=== PATIENT | male | born 1940 | race Caucasian/White ===

== ENCOUNTER → 2017-01-01 | Outpatient (CLI) | payer OTHER, MEDICARE ==
[2015-01-24 12:41] VITALS: BP 162/74
[2017-01-01 12:57] LABS: CREATININE 3.76 mg/dL (0.70-1.30)
--- NOTE | 2017-01-01 15:38 | CT ---
HISTORY: Abdominal pain Study: CT abdomen and pelvis without contrast Comparison: None Technique: Multiple axial images of the abdomen and pelvis were obtained from the lung bases to the pubic symph ysis without the administration of IV contrast. Sagittal and coronal reformations were provided. Findings: The visualized portions of the lung bases are unremarkable. The right kidney is extremely atrophic and barely visible it is so small. There is hypertrophy of the left kidney without hydronephrosis. T here is a 3.6 centimeter central cyst. The liver and spleen and pancreas and adrenal glands are unre markable.. The gallbladder is unremarkable in its CT appearance. No significant mesenteric lymphade nopathy or stranding can be observed. No free fluid or free air is seen within the abdomen. The ap pendix is normal. There is a ventral umbilical hernia of fat . The hernia sac measures 5.3 centimete rs diameter. There stranding of fat planes within the hernia. The distal right ureter is dilated to 1.3 centimeters and there is a 3 centimeter mass at the base of the bladder towards the right and a 7 millimeter calcific density posteriorly within this mass. The prostate gland is normal in size. No bowel wall thickening or bowel dilatation is present. The colon is unremarkable. Specifically, th ere is no diverticulosis noted within the sigmoid colon. The urinary bladder is grossly unremarkable . The bony structures are grossly intact. IMPRESSION: 1. Paraumbilical hernia containing fat with stranding of fat planes implying inflammation within th e hernia. 2. Tiny right kidney with dilatation of the distal right ureter apparently secondary to a nearly 3 c entimeter mass at the base of the right bladder with a dependent or dorsal 7 millimeter calcificatio n within this mass. This mass could represent a chronic ureterocele with increased attenuation from hemorrhage and a dependent calculus. If clinically indicated consider cystoscopy for further evaluat ion. Reported By:
== END ==
LOC: RAD 12:16
PROVIDERS: ATTEND Student in an Organized Health Care Education/Training Program
DX: K42.0 Umbilical hernia with obstruction, without gangrene (principal); R10.31 Right lower quadrant pain
CPT/HCPCS: 36415; 74176; 82565; 84520

== ENCOUNTER 2017-01-10 14:20 | Inpatient (IN) | payer OTHER, MEDICARE ==
--- NOTE | 2017-01-10 14:50 | DR.GENAD ---
HPI - PCP Primary Care Physician: KELBY VUONG - Complaint/Symptoms Chief Complaint Doctors Comments: Family member states at 3:30 am patient begin to shake and was shaking their aime size bed with patient initially complaining of nausea, diffuse abdominal pain and headache. Patient states he has a cyst on his bladder and the other day they put a light into his bladder. He has had a cough but not that bad as he describes it. He denies chest pain or SOB. Family states patient has been extremely weak today and has had problems getting up. States he had a headache at the onset of his problems but his head is not hurting now but he is having stomach pain. Chief Complaint:: PTS FAMILY STATES " AT 0300 PT BEGAN TO JERK , AND PT IS REALLY WEAK". . Self Treatment fo Chief Complaint: PT IS ALTERT AND ORIENTED TIMES FOUR,, - Nurses notes reviewed Nurses Notes Review: Yes - Source History Provided: Patient - Mode of Arrival Mode of Arrival: Wheelchair - Timing Onset of Chief Complaint: 01/10/17 Came on: Gradually - Duration Duration: Intermittent How lon Duration: Hours - Location Location: diffuse abdominal pain. headache - Severity Severity: Moderate - Modifying Factors Worsens:: nothing Improves:: nothing PMH - PMH Past Medical History: Yes Past Medical History: Depression, Gout, Hypertension, [place] Past Medical History Comment: ONE KIDNEY .. Past Surgical History: Yes Surgical History: Ortho Surgery - Family History History of Family Medical Conditions: No Family Medical History: Cancer, [place], Hypertension - Social History Does patient currently use any type of tobacco product: No Have you used tobacco products in the last 12 months: No Type of Tobacco Use: None Does any household member use tobacco: No Alcohol Use: None Do you use any recreational Drugs:: No Lives With: Family Lives Where: Home - infectious screening In the last 2 months have you had wt loss of >10#?: NO Have you had fever, night sweats or hemotysis?: No Have you traveled outside the country in the last 6 months?: No Isolation: Standard ROS - Review of Systems Constitutional: No Symptoms Reported, Fever, Weakness, Loss of Appetite Eyes: No Symptoms Reported. negative: See HPI, Eye Pain, Blurred Vision, Tearing, Discharge, Photophobia, Diplopia, Other ENTM: No Symptoms Reported. negative: See HPI, Ear Pain, Ear Discharge, Pulling on Ears, Hearing Loss, Nose Pain, Nose Discharge, Epistaxis, Nose Congestion, Mouth Pain, Mouth Swelling, Loose Teeth, Drooling, Throat Pain, Throat Swelling, Ear Foreign Body Respiratoy: No Symptoms Reported. negative: See HPI, Productive Cough, Non- Productive Cough, Moist Cough, Dry Cough, Hacking Cough, Barking Cough, Brassy Cough, Orthopnea, Short of Breath, Stridor, Wheezing, Hemoptysis, Other Cardiovascular: No Symptoms Reported. negative: See HPI, Chest Pain, Edema, Palpitations, Syncope, Cyanosis, Skin Mottling, Other Gastrointestinal/Abdominal: No Symptoms Reported, Abdominal Pain. negative: See HPI, Constipation, Diarrhea, Nausea, Vomiting, Food Intolerance, Other Genitourinary: No Symptoms Reported, Frequency. negative: See HPI, Discharge, Dysuria, Hematuria, Pain, Bleeding, Other Neurological: No Symptoms Reported, Headache, Weakness, Problems Walking Musculoskeletal: No Symptoms Reported Integumentary: No Symptoms Reported Hematologic/Lymphatic: No Symptoms Reported. negative: See HPI, Anemia, Blood Clots, Easy Bleeding, Easy Bruising, Swollen Glands, Lymphadenopathy, Other Endocrine: No Symptoms Reported. negative: See HPI, Excessive Sweating, Flushing, Intolerance to Cold, Intolerance to Heat, Increased Hunger, Increased Thirst, Increased Urine, Unexplained Weight Gain, Unexplained Weight Loss, Failure to Thrive, Decreased Appetite, Other Psychiatric: No Symptoms Reported. negative: See HPI, Anxiety, Depression, Hallucinations, Excessive crying, Suicidal, Other PE - Vital Signs Vitals: Temperature 101.0 F Pulse Rate 62 Respiratory Rate 20 Blood Pressure [Right Arm] 162/74 Blood Pressure 156/75 O2 Sat by Pulse Oximetry 97 - General Limitations: Altered Mental Status General Appearance: Alert, In No Apparent Distress, In Distress (moderate to severe) - Head Head Exam: Normal Inspection, Atraumatic, Normocephalic - Eyes Eye exam: Normal Appearance, PERRL, EOMI. negative: Scleral Icterus, Conjunctival Injection, Nystagmus, Miosis, Mydrasis, Periorbital Swelling, Periorbital Tenderness, Other - ENT ENT Exam: Normal Exam, Normal Oropharynx, Normal External Ear Exam, Mucous Membranes Moist, TM's Normal Bilaterally External Ear Exam: Normal External Inspection TM/Canal Exam: Bilateral Normal Nose Exam: Normal Nose Exam, Sinus Tenderness. negative: Nasal Deviation, Crepitus, Septal Hematoma, Laceration Mouth Exam: Normal Inspection. negative: Drooling, Trismus, Lip Swelling, Tongue Elevation, Tongue Swelling, Laceration, Other Throat Exam: Normal Inspection - Neck Neck Exam: Normal Inspection, Full ROM, Trachea Midline. negative: Tenderness, Meningismus, Lymphadenopathy, Thyromegaly, Other - Chest Chest Inspection: Normal Inspection, Symmetric Chest Wall Rise, Tenderness (RUQ tenderness) - Respiratory Respiratory Exam: Normal Lung Sounds Bilat, Chest Wall Tenderness (right anterior wall tenderness RUQ) Respiratory Exam: Bilateral Clear to Auscultation - Cardiovascular Cardiovascular Exam: Regular Rate, Normal Rhythm, Normal Heart Sounds - Abdominal Exam Abdominal Exam: Normal Inspection, Normal Bowel Sounds, Soft, Distention, Hernia (umbilical hernia; readucable 6 cm) Abdominal Tenderness: RUQ, Epigastrium, Moderate - Extremities Extremities Exam: Normal Inspection, Full ROM, Normal Capillary Refill. negative: Tenderness, Edema, Joint Swelling, Calf Tenderness, Other - Back Back Exam: Normal Inspection, Full ROM, (R) CVA Tenderness. negative: Tenderness, (L) CVA Tenderness, Muscle Spasm, Paraspinal Tenderness, Vertebral Tenderness, Rashes, (R) Sciatic Notch Tenderness, (L) Sciatic Notch Tendern, (R ) Straight Leg Raise, (L) Straight Leg Raise, Other - Neurologic Neurological Exam: Alert, Oriented X3, CN II-XII Intact, Normal Gait, Reflexes Normal - Psychiatric Psychiatric Exam: Normal Affect, Normal Mood - Skin Skin Exam: Warm, Dry, Intact, Normal Color Course - Reevaluation 1st: Improved - Consultation Called: 18:04 Call Returned: 18:22 (Dr. Xiong to admit) - Education/Counseling Education/Counseling: Patient, Family Educated On: Treatment, Diagnosis, Prognosis, Needs for Follow Up ROR - Labs Reviewed Laboratory Results Reviewed?: Yes (all labs and x-ray results reviewed and discussed with patient and famil.) Result Diagrams: 01/10/17 14:55 01/10/17 14:55 Laboratory: WBC 9.7 X10^3/uL (3.6-10.0) 01/10/17 14:55 RBC 3.31 X10^6/uL (4.7-6.0) L 01/10/17 14:55 Hgb 9.4 g/dL (13.5-18.0) L 01/10/17 14:55 Hct 29.1 % (42.0-54.0) L 01/10/17 14:55 MCV 87.8 fL (80.0-100.0) 01/10/17 14:55 MCH 28.4 pg (27.0-34.0) 01/10/17 14:55 MCHC 32.3 g/dL (33.0-35.0) L 01/10/17 14:55 RDW 14.1 % (11.6-16.5) 01/10/17 14:55 Plt Count 128.7 X10^3/uL (150.0-450.0) L 01/10/17 14:55 Plt Count Comment Decreased (ADEQUATE) 01/10/17 14:55 MPV 8.7 fL (7.4-11.0) 01/10/17 14:55 Neut % 91.1 % (42.0-75.0) H 01/10/17 14:55 Lymph % 2.6 % (21.0-51.0) L 01/10/17 14:55 Beaver % 4.9 % (0.0-13.0) 01/10/17 14:55 Eos % 0.4 % (0.9-2.9) L 01/10/17 14:55 Baso % 1.0 % (0.2-1.0) 01/10/17 14:55 Neut # 8.8 x10^3/uL (2.2-4.8) H 01/10/17 14:55 Lymph # 0.2 X10^3/uL (1.3-2.9) L 01/10/17 14:55 Beaver # 0.5 x10^3/uL (0.3-0.8) 01/10/17 14:55 Eos # 0.0 x10^3/uL (0.0-0.2) 01/10/17 14:55 Baso # 0.1 X10^3/uL (0.0-0.1) 01/10/17 14:55 Absolute Nucleated RBC 0.0 /100WBC 01/10/17 14:55 Total Counted 100 01/10/17 14:55 Neutrophils % (Manual) 91 % (39-76) H 01/10/17 14:55 Lymphocytes % (Manual) 4 % (13-43) L 01/10/17 14:55 Monocytes % (Manual) 4 % (4-9) 01/10/17 14:55 Eosinophils % (Manual) 1 % (0-6) 01/10/17 14:55 Plt Morphology Comment Normal (NORMAL) 01/10/17 14:55 RBC Morphology Normal (NORMAL) 01/10/17 14:55 Sodium 141 mmol/L (136-145) 01/10/17 14:55 Corrected Sodium TNP 01/10/17 14:55 Potassium 5.5 mmol/L (3.5-5.1) H 01/10/17 14:55 Chloride 110 mmol/L (98-107) H 01/10/17 14:55 Carbon Dioxide 18.3 mmol/L (21-32) L 01/10/17 14:55 BUN 56 mg/dL (7-18) H 01/10/17 14:55 Creatinine 4.58 mg/dL (0.70-1.30) H 01/10/17 14:55 Est GFR (MDRD) Af Amer 16 (>60) L 01/10/17 14:55 Est GFR (MDRD) Non-Af 13 (>60) L 01/10/17 14:55 Glucose 84 mg/dL (65-99) 01/10/17 14:55 Calcium 8.9 mg/dL (8.5-10.1) 01/10/17 14:55 Corrected Calcium TNP 01/10/17 14:55 Total Bilirubin 0.30 mg/dL (0.2-1.0) 01/10/17 14:55 AST 35 Units/L (15-37) 01/10/17 14:55 ALT 23 Units/L (12-78) 01/10/17 14:55 Alkaline Phosphatase 45 Units/L (46-116) L 01/10/17 14:55 Total Protein 7.4 g/dL (6.4-8.2) 01/10/17 14:55 Albumin 3.5 g/dL (3.4-5.0) 01/10/17 14:55 Globulin 3.9 g/dL (2.5-4.5) 01/10/17 14:55 Albumin/Globulin Ratio 0.9 Ratio (1.1-2.1) L 01/10/17 14:55 Amylase 56 Units/L (25-115) 01/10/17 14:55 Lipase 167 Units/L (73-393) 01/10/17 14:55 - XRAY XRAY Interpreted by: Radiologist (CT chest: Left basilar pneumonitis possible; Cardiomegaly; pulmonary hypertensin.), Both (CT head: No acut intracranial process. Left maxillary sinus cyst) XRAY Findings: CT abdomen: Adrenal myelolipomas; Bladder mass unchanged. - Diagnosis Discharge Problem: Left basilar pneumonitis, Normochromic anemia, Bladder mass, Hyperkalemia, Pulmonary hypertension Altered mental status Qualifiers: Altered mental status type: somnolence Qualified Code(s): R40.0 - Somnolence Sinusitis Qualifiers: Sinusitis location: maxillary Chronic kidney disease Qualifiers: Chronic kidney disease stage: stage 4 (severe) Qualified Code(s): N18.4 - Chronic kidney disease, stage 4 (severe) - Discharge Plan Disposition: ADMITTED INPATIENT Condition: Stable - Follow ups/Referrals Follow ups/Referrals: NFD,None [Primary Care Provider] - 3 days - Instructions
[2017-01-10] MEDS ORDERED: NS 1000 ML 1,000 ML ONE (14:57)
[2017-01-10] MEDS: NS 1000 ML 1,000 ML IV SCH (15:08)
[2017-01-10] MEDS ORDERED: LEVAQUIN PREMIX IV 750 MG 750 MG/150 ML BAG IV ONE (15:18)
--- NOTE | 2017-01-10 15:20 | CT ---
HISTORY: Lethargy, headache Study: CT brain without contrast Total Exam DLP: 1290 Comparison: Technique: Multiple axial images of the brain were obtained from the skull base to the vertex without administr ation of IV contrast. Dose reduction techniques were utilized including one or more of the following: Automatic Exposure C ontrol, Adjustment of MA and or KV according to patient size or use of iterative reconstruction tech niques. Findings: No acute intraparenchymal hemorrhage or mass can be identified. No extra-axial fluid collections ar e seen. No alteration in the attenuation of the brain parenchyma can be identified to suggest acute or subacute ischemic change. The ventricular system is symmetric and nondilated. Mild peripheral atrophy is noted. A retention cyst is noted the left maxillary sinus measuring 2 cm consistent chron ic sinusitis. Ocular globes appear intact. IMPRESSION: 1. No acute intracranial process can be identified.. Retention cyst left maxillary sinus. Reported By:
[2017-01-10 15:21] LABS: BASOPHILS # (AUTO) 0.1 X10^3/uL (0.0-0.1); EOSINOPHILS % (AUTO) 0.4 % (0.9-2.9); HEMATOCRIT 29.1 % (42.0-54.0); HEMOGLOBIN 9.4 g/dL (13.5-18.0); LYMPHOCYTES # (AUTO) 0.2 X10^3/uL (1.3-2.9); LYMPHOCYTES % (AUTO) 2.6 % (21.0-51.0); MEAN CORPUSCULAR HEMOGLOBIN 28.4 pg (27.0-34.0); MEAN CORPUSCULAR HGB CONC 32.3 g/dL (33.0-35.0); MEAN CORPUSCULAR VOLUME 87.8 fL (80.0-100.0); MEAN PLATELET VOLUME 8.7 fL (7.4-11.0); MONOCYTES # (AUTO) 0.5 x10^3/uL (0.3-0.8); MONOCYTES % (AUTO) 4.9 % (0.0-13.0); NEUTROPHILS # (AUTO) 8.8 x10^3/uL (2.2-4.8); NEUTROPHILS % (AUTO) 91.1 % (42.0-75.0); RED BLOOD COUNT 3.31 X10^6/uL (4.7-6.0); RED CELL DISTRIBUTION WIDTH 14.1 % (11.6-16.5); WHITE BLOOD COUNT 9.7 X10^3/uL (3.6-10.0)
[2017-01-10 15:24] LABS: PLATELET COUNT 128.7 X10^3/uL (150.0-450.0)
[2017-01-10 15:29] LABS: ALANINE AMINOTRANSFERASE 23 Units/L (12-78); ALBUMIN 3.5 g/dL (3.4-5.0); ALKALINE PHOSPHATASE 45 Units/L (46-116); AMYLASE 56 Units/L (25-115); BLOOD UREA NITROGEN 56 mg/dL (7-18); CALCIUM 8.9 mg/dL (8.5-10.1); CARBON DIOXIDE 18.3 mmol/L (21-32); CHLORIDE 110 mmol/L (98-107); CREATININE 4.58 mg/dL (0.70-1.30); GLUCOSE 84 mg/dL (65-99); LIPASE 167 Units/L (73-393); SODIUM 141 mmol/L (136-145); TOTAL PROTEIN 7.4 g/dL (6.4-8.2); eGFR BLACK RACES 16 (>60); eGFR NON BLACK RACES 13 (>60)
[2017-01-10 15:32] LABS: ASPARTATE AMINO TRANSFERASE 35 Units/L (15-37)
[2017-01-10 15:33] LABS: PLATELET MORPHOLOGY COMMENT NORMAL (NORMAL)
--- NOTE | 2017-01-10 15:33 | CT ---
HISTORY: Pneumonia. Chest pain. Study: CT chest without contrast Comparison: Chest radiograph dated 01/18/2015 Technique: Multiple axial images of the chest were obtained from the thoracic inlet to the upper abd omen without the administration of IV contrast. Automated exposure control (AEC) was utilized to ad just the MA and/or kV according to patient size. Findings: The central airways are patent. patchy ground-glass opacities noted within the left lower lobe whic h may be secondary to dependent atelectatic changes however mild left basilar pneumonitis is not ent irely excluded. No pleural effusion. No pneumothorax. There are no significantly enlarged axillary, mediastinal or hilar lymph nodes by CT size criteria. Multiple coronary stents present. There is mild multichamber cardiomegaly. No pericardial effusion . The aorta is of normal caliber without aneurysmal dilatation. The pulmonary trunk is dilated emmanuel suring 3.7 cm in diameter. Limited images of the upper abdomen so no gross acute abnormality. Examination of the osseous structures demonstrates no acute osseous abnormality.. There is a chronic healed left clavicular fracture deformity. IMPRESSION: 1. Scattered ground-glass opacities are noted within the left lung base which are nonspecific. Thes e may be secondary to dependent atelectatic changes are scarring however mild left basilar pneumonit is is not excluded. There are no focal airspace opacities noted. 2. Distended pulmonary trunk measuring 3.7 cm. This can be seen in the setting of pulmonary arterial hypertension. 3. Mild cardiomegaly 4. Other findings as above. Reported By:
[2017-01-10] MEDS: LEVAQUIN PREMIX IV 750 MG 750 MG/150 ML BAG IV SCH (15:39)
--- NOTE | 2017-01-10 16:00 | CT ---
HISTORY: Right upper quadrant abdominal pain and abdominal swelling Study: CT abdomen and pelvis without contrast Comparison: January 01, 2017 Technique: Multiple axial images of the abdomen and pelvis were obtained from the lung bases to the pubic symph ysis without the administration of IV contrast. Findings: The visualized portions of the lung bases are clear. Very mild subsegmental atelectasis is noted wit hin the left lung base. The liver, pancreas, and spleen are unremarkable in appearance. Within the left adrenal gland there is a 2.4 cm x 2.3 cm fatty lesion which is most consistent with an adrenal myelolipoma. A smaller ad renal myelolipoma measuring 1.5 cm x 1.4 cm is identified within the right adrenal gland. Within the mid pole of the left kidney there is a 3.5 cm x 3.4 cm renal cyst. The right kidney is severely atr ophic and barely visible. There is mild dilatation of the distal right ureter , which contains a non obstructing 4 mm curvilinear calcification. At the right base of bladder near the right ureterovesic al junction there is a stable 2.9 cm isodense structure which could represent a ureterocele , contai nelia a 7 mm calcification or stone. If not already performed , cystoscopy would be beneficial in fur ther evaluation . The gallbladder is unremarkable in its CT appearance. No significant mesenteric l ymphadenopathy or stranding can be observed. No free fluid or free air is seen within the abdomen. No bowel wall thickening or bowel dilatation is present. The colon is unremarkable. The appendix i s normal in size and without inflammatory change. However, there are at least 2 calcific structures within the appendix, possibly representing an appendicoliths versus retained contrast. Again identif ied is a periumbilical hernia which contains fat. There is stranding within the herniated fat, sugge sting inflammation or possible fatty infarct. The bony structures are grossly intact. Multilevel th oracolumbar spondylosis and facet hypertrophy are noted. There are postsurgical changes of the lower lumbar spine. IMPRESSION: 1. No acute intra-abdominal abnormality evident. 2. Unchanged bladder base mass. Please see above discussion. 3. Bilateral adrenal myelolipomas. 4. Fat containing periumbilical hernia, with stranding present within the herniated fat, suggesting inflammation or fatty infarct. Reported By:
[2017-01-10] MEDS ORDERED: TUSSIONEX PENNKINETIC SUSP PO PRN ×2 (18:30→19:13)
[2017-01-10 20:00] VITALS: BMI 29.3
[2017-01-10] MEDS ORDERED: SALINE 3% 15 ML NEB TX ONE (20:12)
[2017-01-10] MEDS ORDERED: DUONEB 0.5 MG/3 MG ONE (20:13)
[2017-01-10] MEDS: DUONEB 0.5 MG/3 MG NEB SCH (20:22)
[2017-01-10] MEDS ORDERED: TYLENOL 325 MG TAB PO PRN (20:51)
[2017-01-10] MEDS ORDERED: ROBITUSSIN DM PO SCH (21:00)
[2017-01-10] MEDS ORDERED: DUONEB 0.5 MG/3 MG NEB SCH ×3 (21:00)
[2017-01-10] MEDS: ROBITUSSIN DM PO SCH (21:22)
[2017-01-11] MEDS: DUONEB 0.5 MG/3 MG NEB SCH ×6 (01:03→21:15)
[2017-01-11] MEDS: ZOFRAN INJ 4 MG VIAL IVP PRN ×2 (04:27→20:50)
[2017-01-11] MEDS: NORCO 5/325 MG TAB PO PRN ×3 (04:27→23:38)
[2017-01-11 06:42] LABS: BLOOD UREA NITROGEN 56 mg/dL (7-18); CALCIUM 8.5 mg/dL (8.5-10.1); CARBON DIOXIDE 17.7 mmol/L (21-32); CHLORIDE 110 mmol/L (98-107); CREATININE 4.44 mg/dL (0.70-1.30); GLUCOSE 80 mg/dL (65-99); SODIUM 141 mmol/L (136-145); eGFR BLACK RACES 17 (>60); eGFR NON BLACK RACES 14 (>60)
[2017-01-11] MEDS: NS 1000 ML 1,000 ML IV SCH ×2 (06:42→22:03)
[2017-01-11 06:53] LABS: BASOPHILS # (AUTO) 0.1 X10^3/uL (0.0-0.1); BASOPHILS % (AUTO) 1.6 % (0.2-1.0); EOSINOPHILS % (AUTO) 0.1 % (0.9-2.9); HEMATOCRIT 30.4 % (42.0-54.0); HEMOGLOBIN 9.9 g/dL (13.5-18.0); LYMPHOCYTES # (AUTO) 0.5 X10^3/uL (1.3-2.9); LYMPHOCYTES % (AUTO) 7.4 % (21.0-51.0); MEAN CORPUSCULAR HEMOGLOBIN 28.6 pg (27.0-34.0); MEAN CORPUSCULAR HGB CONC 32.4 g/dL (33.0-35.0); MEAN CORPUSCULAR VOLUME 88.1 fL (80.0-100.0); MEAN PLATELET VOLUME 9.7 fL (7.4-11.0); MONOCYTES # (AUTO) 0.5 x10^3/uL (0.3-0.8); MONOCYTES % (AUTO) 8.2 % (0.0-13.0); NEUTROPHILS # (AUTO) 5.2 x10^3/uL (2.2-4.8); NEUTROPHILS % (AUTO) 82.7 % (42.0-75.0); PLATELET COUNT 134 X10^3/uL (150.0-450.0); RED BLOOD COUNT 3.45 X10^6/uL (4.7-6.0); RED CELL DISTRIBUTION WIDTH 14.5 % (11.6-16.5); WHITE BLOOD COUNT 6.2 X10^3/uL (3.6-10.0)
[2017-01-11] MEDS ORDERED: AFLURIA IM ONE (06:57)
[2017-01-11] MEDS ORDERED: PREVNAR 13 IM ONE (06:57)
[2017-01-11] MEDS: LEVAQUIN PREMIX IV 750 MG 750 MG/150 ML BAG IV SCH (08:33)
[2017-01-11] MEDS: ROCEPHIN VIAL 1 GM 1 GM in NS 50 ML IV + SPIKE MINIBAG* 50 ML IV SCH (08:33)
[2017-01-11] MEDS: ROBITUSSIN DM PO SCH ×4 (08:34→21:56)
[2017-01-11] MEDS ORDERED: ROCEPHIN VIAL 1 GM 1 GM in NS 50 ML IV + SPIKE MINIBAG* 50 ML IV SCH (09:00)
[2017-01-11] MEDS ORDERED: BENTYL CAP 10 MG PO PRN (12:08)
[2017-01-11] MEDS ORDERED: ULTRAM PO PRN (12:08)
[2017-01-11] MEDS ORDERED: TUSSIONEX PENNKINETIC SUSP PO PRN (12:08)
[2017-01-11] MEDS ORDERED: PATIENT'S HOME MEDICATION RESPIRATORY (Omeprazole [Prilosec 40 Mg] 40 MG) PO SCH (12:15)
[2017-01-11] MEDS ORDERED: WELCHOL PO SCH (13:00)
[2017-01-11] MEDS ORDERED: [UNRECOGNIZED DRUG - OTHER] PO SCH (14:00)
[2017-01-11] MEDS: NYSTATIN OINT TOP SCH ×2 (15:19→22:10)
[2017-01-11] MEDS: ZYLOPRIM PO SCH (15:20)
[2017-01-11] MEDS: FLONASE NASAL SPRAY ENOSTRIL SCH (15:21)
[2017-01-11] MEDS: [UNRECOGNIZED DRUG - OTHER] PO SCH (15:21)
[2017-01-11] MEDS: NORVASC TAB 5 MG PO SCH (15:21)
[2017-01-11] MEDS: SODIUM BICARBONATE TAB 650MG PO SCH ×2 (15:22→21:49)
[2017-01-11] MEDS: WELLBUTRIN XL 300 MG (DAILY) PO SCH (15:23)
[2017-01-11 17:54] LABS: BILIRUBIN,URINE NEGATIVE (NEGATIVE); BLOOD/HEMOGLOBIN,URINE 2+ (NEGATIVE); GLUCOSE, URINE NEGATIVE (NEGATIVE); KETONES,URINE NEGATIVE (NEGATIVE); LEUKOCYTE ESTERASE ,URINE 3+ (NEGATIVE); NITRITES,URINE NEGATIVE (NEGATIVE); PROTEIN,URINE 3+ (NEGATIVE); UROBILINOGEN,URINE NORMAL (NORMAL)
[2017-01-11 18:06] LABS: APPEARANCE,URINE HAZY (CLEAR); BACTERIA,URINE TRACE /HPF (NEGATIVE); COLOR,URINE YELLOW (YELLOW); RBC,URINE 0-5 /HPF (NEGATIVE); SQUAMOUS EPITHELIAL CELL,UR RARE /HPF (NEGATIVE)
[2017-01-11] MEDS: NEURONTIN CAP 400 MG PO SCH (21:49)
[2017-01-11] MEDS: TRICOR TAB 145 MG PO SCH (21:49)
[2017-01-11] MEDS: PRILOSEC PO SCH (21:50)
[2017-01-11] MEDS: ATARAX TAB 25 MG PO SCH (21:51)
[2017-01-12] MEDS: DUONEB 0.5 MG/3 MG NEB SCH ×6 (01:16→20:59)
[2017-01-12] MEDS ORDERED: ULTRAM PO PRN (03:59)
[2017-01-12] MEDS: NEURONTIN CAP 400 MG PO SCH ×3 (06:49→21:12)
[2017-01-12] MEDS: LEVAQUIN PREMIX IV 750 MG 750 MG/150 ML BAG IV SCH (08:28)
[2017-01-12] MEDS: [UNRECOGNIZED DRUG - OTHER] PO SCH (09:00)
[2017-01-12] MEDS: NYSTATIN OINT TOP SCH ×2 (09:26→20:44)
[2017-01-12] MEDS: ROCEPHIN VIAL 1 GM 1 GM in NS 50 ML IV + SPIKE MINIBAG* 50 ML IV SCH (10:04)
--- NOTE | 2017-01-12 11:17 | DR.H&P ---
H&P - History & Physical for Day of: H&P Date: 01/10/17 - Chief Complaint Chief Complaint: abd pain, shaking, AMS - Allergies Allergies/Adverse Reactions: Allergies Allergy/AdvReac Type Severity Reaction Status Date / Time Ketoconazole Allergy Verified 01/10/17 14:31 - History of Present Illness History of Present Illness: The patient is a 76-year-old white male who waking family members at approximately 3 AM due to abdominal pain and what family members described as "jerking". The patient was also noted to be confused compared to his baseline. Patient underwent an extensive workup in the emergency room setting and subsequently revealed a left lower lobe pneumonia, UTI, and acute on chronic renal failure. Patient was subsequently admitted to the ICU unit for further workup. - Past Medical History Past Medical History: Depression, Gout, Hypertension, [place] Additional Medical History: Right bladder mass; possible ureterocele containing a calculus - Past Surgical History Surgical History: Ortho Surgery Additional Surgical History: Recent cystoscopy; due to right-sided bladder mass results unknown - Family History Family Medical History: Cancer, Hypertension - Social History Does patient currently use any type of tobacco product: No Have you used tobacco products in the last 12 months: No Type of Tobacco Use: None Does any household member use tobacco: No Alcohol Use: None Drug Use: None - Medications Home Medications: Amlodipine Besylate [NORVASC 5 MG *] 5 mg PO DAILY 01/11/17 [History Confirmed 01/11/17] Bupropion Xl (Daily) [Wellbutrin Xl 300 mg (Daily)] 300 mg PO DAILY 01/11/17 [ History Confirmed 01/11/17] Colesevelam HCl [WELCHOL 625 MG *] 3,750 mg PO DAILY 01/11/17 [History Confirmed 01/11/17] Fenofibrate [Tricor Tab 145 mg] 145 mg PO HS 01/11/17 [History Confirmed ] Gabapentin 800 mg PO TID 01/11/17 [History Confirmed 01/11/17] Hydroxyzine HCl 25 mg Tab [ATARAX *] 25 mg HS 01/11/17 [History Confirmed ] - Review of Systems Constitutional: See HPI Eyes: No Symptoms Reported ENT: No Symptoms Reported Respiratory: See HPI Cardiovascular: No Symptoms Reported Gastrointestinal: See HPI Genitourinary: No Symptoms Reported Musculoskeletal: No Symptoms Reported Skin: No Symptoms Reported Neurological: See HPI - Physical Exam Vital Signs: Temperature 98.6 F Pulse Rate [Right Radial] 55 Pulse Rate 84 Respiratory Rate 19 Blood Pressure [Right Arm] 136/60 Blood Pressure 156/75 O2 Sat by Pulse Oximetry 98 Oriented: Person, Place Eyes: Normal Ear: Normal Nose: Normal Throat: Normal Respiratory: LLL Rhonchi Cardiovascular: Normal : Normal Auscultation: Bowel Sounds: Normal Palpation: Normal Tenderness: Diffuse, Mild Skin: Normal Musculoskeletal: Normal Psychiatric: Normal Mood Description: Calm, Flat Affect: Flat Speech Pattern: Clear - Assessment/Plan (1) Acute on chronic renal failure Status: Acute Plan: 1. Admit to ICU. 2. Temperature. 3. O2 2 L/m per nasal cannula. 4. Chest x-ray. 5. UA C&S. 6. Blood cultures 2 from separate sites. 7. CMP and CBC. 8. Levaquin 500 milligrams IV daily. 9. Rocephin 1 g IV daily. 10. CT scan of the abdomen and pelvis. 11. Aggressive IV fluid hydration. 12. Closely monitor renal function. 13. For further orders to chart (2) Left lower lobe pneumonia Qualifiers: Pneumonia type: P Aspiration pneumonia type: A Status: Acute Plan: As above. (3) UTI (urinary tract infection) Qualifiers: Urinary tract infection type: U Hematuria presence: H Indwelling urinary catheter type: I Encounter type: E Status: Acute (4) Altered mental status Qualifiers: Altered mental status type: transient alteration of awareness Coma depth: C Coma timing: C Qualified Code(s): R40.4 - Transient alteration of awareness Status: Acute Plan: As above. (5) Hyperkalemia Status: Acute Plan: As above. (6) Bladder mass Status: Chronic Plan: As above.
--- NOTE | 2017-01-12 11:27 | PCM.PROG ---
Progress Note - Progress Note for Day of Date: 01/11/17 - Subjective Subjective: The patient is a 76-year-old white male who was admitted to [facility] on the evening of 01/10/2017. The pt awakened family members at approximately 3 AM on 01/10 due to abdominal pain and what family members described as "jerking". The patient was also noted to be confused compared to his baseline. Patient underwent an extensive workup in the emergency room setting and subsequently revealed a left lower lobe pneumonia, UTI, and acute on chronic renal failure. The patient states that he feels better. - Past Medical Family Social History Past Med/Fam/Surg Hx: No changes since H&P Allergies: Allergies Ketoconazole Allergy (Verified 01/10/17 14:31) - Review of Systems ROS: No change since H&P - Vital Signs and I&O's Vital Signs: Temperature 98.6 F Pulse Rate [Right Radial] 55 Pulse Rate 84 Respiratory Rate 19 Blood Pressure [Right Arm] 136/60 Blood Pressure 156/75 O2 Sat by Pulse Oximetry 98 Intake and Output: Intake & Output 01/09/17 01/10/17 01/11/17 01/12/17 11:59 11:59 11:59 11:59 Intake Total 1400 2955 Balance 1400 2955 - Physical Exam Oriented: Person, Place Eyes: Normal Ear: Normal Nose: Normal Throat: Normal Respiratory: Left (left lower lobe), Rhonchi Cardiovascular: Normal : Normal Auscultation: Bowel Sounds: Normal Tenderness: Diffuse, Mild Skin: Normal Musculoskeletal: Normal Psychiatric: Normal Mood Description: Calm, Flat Affect: Flat Speech Pattern: Clear - Laboratory and Diagnostics Result Diagrams: 01/11/17 05:10 01/11/17 05:10 Labs: 01/10/17 20:13 Sputum - Expectorated Sputum Sputum Culture - Final 01/10/17 20:13 Sputum - Expectorated Sputum - Final Laboratory WBC 6.2 X10^3/uL (3.6-10.0) 01/11/17 05:10 RBC 3.45 X10^6/uL (4.7-6.0) L 01/11/17 05:10 Hgb 9.9 g/dL (13.5-18.0) L 01/11/17 05:10 Hct 30.4 % (42.0-54.0) L 01/11/17 05:10 MCV 88.1 fL (80.0-100.0) 01/11/17 05:10 MCH 28.6 pg (27.0-34.0) 01/11/17 05:10 MCHC 32.4 g/dL (33.0-35.0) L 01/11/17 05:10 RDW 14.5 % (11.6-16.5) 01/11/17 05:10 Plt Count 134 X10^3/uL (150.0-450.0) L 01/11/17 05:10 Plt Count Comment Decreased (ADEQUATE) 01/10/17 14:55 MPV 9.7 fL (7.4-11.0) 01/11/17 05:10 Neut % 82.7 % (42.0-75.0) H 01/11/17 05:10 Lymph % 7.4 % (21.0-51.0) L 01/11/17 05:10 [place] % 8.2 % (0.0-13.0) 01/11/17 05:10 Eos % 0.1 % (0.9-2.9) L 01/11/17 05:10 Baso % 1.6 % (0.2-1.0) H 01/11/17 05:10 Neut # 5.2 x10^3/uL (2.2-4.8) H 01/11/17 05:10 Lymph # 0.5 X10^3/uL (1.3-2.9) L 01/11/17 05:10 [place] # 0.5 x10^3/uL (0.3-0.8) 01/11/17 05:10 Eos # 0.0 x10^3/uL (0.0-0.2) 01/11/17 05:10 Baso # 0.1 X10^3/uL (0.0-0.1) 01/11/17 05:10 Absolute Nucleated RBC 0.0 /100WBC 01/11/17 05:10 Total Counted 100 01/10/17 14:55 Neutrophils % (Manual) 91 % (39-76) H 01/10/17 14:55 Lymphocytes % (Manual) 4 % (13-43) L 01/10/17 14:55 Monocytes % (Manual) 4 % (4-9) 01/10/17 14:55 Eosinophils % (Manual) 1 % (0-6) 01/10/17 14:55 Plt Morphology Comment Normal (NORMAL) 01/10/17 14:55 RBC Morphology Normal (NORMAL) 01/10/17 14:55 Sodium 141 mmol/L (136-145) 01/11/17 05:10 Corrected Sodium TNP 01/11/17 05:10 Potassium 5.0 mmol/L (3.5-5.1) 01/11/17 05:10 Chloride 110 mmol/L (98-107) H 01/11/17 05:10 Carbon Dioxide 17.7 mmol/L (21-32) L 01/11/17 05:10 BUN 56 mg/dL (7-18) H 01/11/17 05:10 Creatinine 4.44 mg/dL (0.70-1.30) H 01/11/17 05:10 Est GFR (MDRD) Af Amer 17 (>60) L 01/11/17 05:10 Est GFR (MDRD) Non-Af 14 (>60) L 01/11/17 05:10 Glucose 80 mg/dL (65-99) 01/11/17 05:10 Calcium 8.5 mg/dL (8.5-10.1) 01/11/17 05:10 Corrected Calcium TNP 01/10/17 14:55 Total Bilirubin 0.30 mg/dL (0.2-1.0) 01/10/17 14:55 AST 35 Units/L (15-37) 01/10/17 14:55 ALT 23 Units/L (12-78) 01/10/17 14:55 Alkaline Phosphatase 45 Units/L (46-116) L 01/10/17 14:55 Total Protein 7.4 g/dL (6.4-8.2) 01/10/17 14:55 Albumin 3.5 g/dL (3.4-5.0) 01/10/17 14:55 Globulin 3.9 g/dL (2.5-4.5) 01/10/17 14:55 Albumin/Globulin Ratio 0.9 Ratio (1.1-2.1) L 01/10/17 14:55 Amylase 56 Units/L (25-115) 01/10/17 14:55 Lipase 167 Units/L (73-393) 01/10/17 14:55 Specimen Type Clean catch urine 01/11/17 17:23 Urine Color Yellow (YELLOW) 01/11/17 17: Urine Appearance Hazy (CLEAR) 01/11/17 17:23 Urine pH 5.0 (5.0 - 8.0) 01/11/17 17:23 Ur Specific [place] 1.020 (1.000-1.030) 01/11/17 17:23 Urine Protein 3+ (NEGATIVE) 01/11/17 17:23 Urine Glucose (UA) Negative (NEGATIVE) 01/11/17 17:23 Urine Ketones Negative (NEGATIVE) 01/11/17 17: Urine Occult Blood 2+ (NEGATIVE) 01/11/17 17: Urine Nitrite Negative (NEGATIVE) 01/11/17 17: Urine Bilirubin Negative (NEGATIVE) 01/11/17 17:23 Urine Urobilinogen Normal (NORMAL) 01/11/17 17:23 Ur Leukocyte Esterase 3+ (NEGATIVE) 01/11/17 17:23 Urine RBC 0-5 /HPF (NEGATIVE) 01/11/17 17:23 Urine WBC 20-25 /HPF (NEGATIVE) 01/11/17 17:23 Ur Squamous Epith Cells Rare /HPF (NEGATIVE) 01/11/17 17:23 Urine Bacteria Trace /HPF (NEGATIVE) 01/11/17 17:23 Ur Culture Indicated? Yes/culture set up 01/11/17 17:23 - Plan (1) Acute on chronic renal failure Status: Acute Plan: 1. Cont to monitor in IMCU. 2. Telemetry. 3. O2 2 L/m per nasal cannula. 4. Chest x-ray. 5. UA C&S - pending. 6. Blood cultures 2 from separate sites - pending. 7. CMP and CBC. 8. Levaquin 500 milligrams IV daily. 9. Rocephin 1 g IV daily. 10. CT scan of the abdomen and pelvis. 11. Aggressive IV fluid hydration. 12. Closely monitor renal function. 13. HIDA in am. 14. For further orders to chart (2) Left lower lobe pneumonia Status: Acute Qualifiers: Pneumonia type: P Aspiration pneumonia type: A Plan: As above. (3) UTI (urinary tract infection) Status: Acute Qualifiers: Urinary tract infection type: U Hematuria presence: H Indwelling urinary catheter type: I Encounter type: E (4) Altered mental status Status: Acute Qualifiers: Altered mental status type: transient alteration of awareness Coma depth: C Coma timing: C Qualified Code(s): R40.4 - Transient alteration of awareness Plan: As above. (5) Hyperkalemia Status: Acute Plan: As above. (6) Bladder mass Status: Chronic Plan: As above. (7) Abdominal pain Status: Acute Qualifiers: Abdominal location: A Narrative Support Text: R/O acalculous cholecystitis Plan: As above
[2017-01-12] MEDS: ROBITUSSIN DM PO SCH ×4 (12:20→20:43)
[2017-01-12 12:29] LABS: BASOPHILS % (AUTO) 0.9 % (0.2-1.0); EOSINOPHILS # (AUTO) 0.1 x10^3/uL (0.0-0.2); EOSINOPHILS % (AUTO) 2.2 % (0.9-2.9); HEMATOCRIT 28.9 % (42.0-54.0); HEMOGLOBIN 9.3 g/dL (13.5-18.0); LYMPHOCYTES # (AUTO) 0.6 X10^3/uL (1.3-2.9); LYMPHOCYTES % (AUTO) 15.5 % (21.0-51.0); MEAN CORPUSCULAR HEMOGLOBIN 28.2 pg (27.0-34.0); MEAN CORPUSCULAR HGB CONC 32.1 g/dL (33.0-35.0); MEAN CORPUSCULAR VOLUME 87.8 fL (80.0-100.0); MEAN PLATELET VOLUME 9.3 fL (7.4-11.0); MONOCYTES # (AUTO) 0.5 x10^3/uL (0.3-0.8); MONOCYTES % (AUTO) 13.2 % (0.0-13.0); NEUTROPHILS # (AUTO) 2.6 x10^3/uL (2.2-4.8); NEUTROPHILS % (AUTO) 68.2 % (42.0-75.0); PLATELET COUNT 135 X10^3/uL (150.0-450.0); RED BLOOD COUNT 3.29 X10^6/uL (4.7-6.0); RED CELL DISTRIBUTION WIDTH 14.3 % (11.6-16.5); WHITE BLOOD COUNT 3.8 X10^3/uL (3.6-10.0)
[2017-01-12 12:49] LABS: ALANINE AMINOTRANSFERASE 21 Units/L (12-78); ALBUMIN 2.4 g/dL (3.4-5.0); ALKALINE PHOSPHATASE 29 Units/L (46-116); AMYLASE 30 Units/L (25-115); ASPARTATE AMINO TRANSFERASE 29 Units/L (15-37); BLOOD UREA NITROGEN 52 mg/dL (7-18); CALCIUM 8.2 mg/dL (8.5-10.1); CARBON DIOXIDE 19.5 mmol/L (21-32); CHLORIDE 111 mmol/L (98-107); COR CA(FOR HYPOALB) 9.5 mg/dL (8.5-10.1); CREATININE 4.05 mg/dL (0.70-1.30); GLUCOSE 86 mg/dL (65-99); LIPASE 144 Units/L (73-393); SODIUM 143 mmol/L (136-145); eGFR BLACK RACES 19 (>60); eGFR NON BLACK RACES 15 (>60)
[2017-01-12 12:54] LABS: PLATELET MORPHOLOGY COMMENT NORMAL (NORMAL)
[2017-01-12] MEDS ORDERED: DEMEROL INJ IVP ONE ×2 (13:32→13:39)
[2017-01-12] MEDS ORDERED: DEMEROL INJ ONE (13:36)
[2017-01-12] MEDS: ZOFRAN INJ 4 MG VIAL IVP PRN (13:38)
[2017-01-12] MEDS: NS 1000 ML 1,000 ML IV SCH ×3 (14:09→22:54)
[2017-01-12] MEDS: SODIUM BICARBONATE TAB 650MG PO SCH ×2 (14:16→20:43)
[2017-01-12] MEDS: PRILOSEC PO SCH ×2 (14:17→20:44)
[2017-01-12] MEDS: FLONASE NASAL SPRAY ENOSTRIL SCH (16:13)
[2017-01-12] MEDS: ZYLOPRIM PO SCH (16:14)
[2017-01-12] MEDS: NORVASC TAB 5 MG PO SCH (16:14)
[2017-01-12] MEDS: WELLBUTRIN XL 300 MG (DAILY) PO SCH (16:18)
--- NOTE | 2017-01-12 16:21 | NM ---
Indication: Pain. Exam: Nuclear medicine hepatobiliary scan. Technique: The patient was injected with 5.6 mCi of technetium 99 M Choletec IV and delayed images w ere obtained. The patient was given 8 oz of Ensure plus and the ejection fractions were calculated . Findings: There is physiologic uptake throughout the liver with no focal defects seen. There was upt kristine in the gallbladder within 1 hr which was not well distended. There was prompt excretion into the small bowel. The patient was given a Ensure orally and a gallbladder ejection fraction was calculat ed at 21% with normal considered greater than 50%. Impression: Slightly contracted appearing gallbladder with an abnormally decreased ejection fraction suggestive of biliary dyskinesia. Reported By:
[2017-01-12] MEDS: PROTONIX INJ 40 MG VIAL IVP SCH (18:39)
[2017-01-12] MEDS: TRICOR TAB 145 MG PO SCH (20:44)
[2017-01-12] MEDS: ATARAX TAB 25 MG PO SCH (20:44)
[2017-01-12] MEDS: NORCO 5/325 MG TAB PO PRN (20:45)
[2017-01-13] MEDS: DUONEB 0.5 MG/3 MG NEB SCH ×6 (00:56→20:40)
[2017-01-13] MEDS: NORCO 5/325 MG TAB PO PRN (02:52)
[2017-01-13] MEDS: NS 1000 ML 1,000 ML IV SCH ×3 (05:25→19:09)
[2017-01-13] MEDS: NEURONTIN CAP 400 MG PO SCH ×3 (05:25→21:26)
[2017-01-13 06:17] LABS: EOSINOPHILS # (AUTO) 0.2 x10^3/uL (0.0-0.2); HEMATOCRIT 28.4 % (42.0-54.0); LYMPHOCYTES # (AUTO) 0.8 X10^3/uL (1.3-2.9); MEAN CORPUSCULAR HEMOGLOBIN 28.5 pg (27.0-34.0); RED CELL DISTRIBUTION WIDTH 14.4 % (11.6-16.5); WHITE BLOOD COUNT 4.3 X10^3/uL (3.6-10.0)
[2017-01-13 06:20] LABS: ALANINE AMINOTRANSFERASE 19 Units/L (12-78); ALBUMIN 2.5 g/dL (3.4-5.0); ALKALINE PHOSPHATASE 32 Units/L (46-116); ASPARTATE AMINO TRANSFERASE 25 Units/L (15-37); BLOOD UREA NITROGEN 50 mg/dL (7-18); CALCIUM 8.5 mg/dL (8.5-10.1); CARBON DIOXIDE 18.8 mmol/L (21-32); CHLORIDE 112 mmol/L (98-107); COR CA(FOR HYPOALB) 9.7 mg/dL (8.5-10.1); CREATININE 3.81 mg/dL (0.70-1.30); GLUCOSE 82 mg/dL (65-99); SODIUM 143 mmol/L (136-145); TOTAL PROTEIN 6.2 g/dL (6.4-8.2); eGFR BLACK RACES 20 (>60); eGFR NON BLACK RACES 17 (>60)
[2017-01-13 06:32] LABS: EOSINOPHILS % (AUTO) 4.3 % (0.9-2.9); HEMOGLOBIN 9.2 g/dL (13.5-18.0); LYMPHOCYTES % (AUTO) 18.8 % (21.0-51.0); MEAN CORPUSCULAR HGB CONC 32.5 g/dL (33.0-35.0); MEAN CORPUSCULAR VOLUME 87.7 fL (80.0-100.0); MONOCYTES # (AUTO) 0.5 x10^3/uL (0.3-0.8); MONOCYTES % (AUTO) 11.4 % (0.0-13.0); NEUTROPHILS # (AUTO) 2.8 x10^3/uL (2.2-4.8); NEUTROPHILS % (AUTO) 64.5 % (42.0-75.0); PLATELET COUNT 149 X10^3/uL (150.0-450.0); RED BLOOD COUNT 3.24 X10^6/uL (4.7-6.0)
[2017-01-13] MEDS: FLONASE NASAL SPRAY ENOSTRIL SCH (08:32)
[2017-01-13] MEDS: SODIUM BICARBONATE TAB 650MG PO SCH ×2 (08:33→21:26)
[2017-01-13] MEDS: ROBITUSSIN DM PO SCH ×4 (08:33→21:25)
[2017-01-13] MEDS: ZYLOPRIM PO SCH (08:33)
[2017-01-13] MEDS: WELLBUTRIN XL 300 MG (DAILY) PO SCH (08:33)
[2017-01-13] MEDS: NORVASC TAB 5 MG PO SCH (08:33)
[2017-01-13] MEDS: PROTONIX INJ 40 MG VIAL IVP SCH (08:34)
[2017-01-13] MEDS: PRILOSEC PO SCH ×2 (08:34→21:25)
[2017-01-13] MEDS: NYSTATIN OINT TOP SCH ×2 (08:34→21:29)
[2017-01-13] MEDS: ROCEPHIN VIAL 1 GM 1 GM in NS 50 ML IV + SPIKE MINIBAG* 50 ML IV SCH (08:35)
[2017-01-13] MEDS: [UNRECOGNIZED DRUG - OTHER] PO SCH (08:37)
[2017-01-13] MEDS ORDERED: XANAX PO PRN (09:41)
--- NOTE | 2017-01-13 10:22 | PCM.PROG ---
Progress Note - Progress Note for Day of Date: 01/12/17 - Subjective Subjective: The patient is a 76-year-old white male who was admitted to [facility] on the evening of 01/10/2017. The pt awakened family members at approximately 3 AM on 01/10 due to abdominal pain and what family members described as "jerking". The patient was also noted to be confused compared to his baseline. Patient underwent an extensive workup in the emergency room setting and subsequently revealed a left lower lobe pneumonia, UTI, and acute on chronic renal failure. Pt co abdominal pain and diarrhea for several weeks. pt has seen irfan in the past for co. pt is npo for HIDA this am. will repeat am labs, contiue iv atbx for pneumonia - Past Medical Family Social History Past Med/Fam/Surg Hx: No changes since H&P Allergies: Allergies Ketoconazole Allergy (Verified 01/10/17 14:31) - Review of Systems ROS: No change since H&P - Vital Signs and I&O's Vital Signs: Temperature 98.9 F Pulse Rate [Right Radial] 71 Pulse Rate 94 Respiratory Rate 17 Blood Pressure [Right Arm] 128/68 O2 Sat by Pulse Oximetry 90 Intake and Output: Intake & Output 01/10/17 01/11/17 01/12/17 01/13/17 11:59 11:59 11:59 11:59 Intake Total 2143 Balance 2143 - Physical Exam Oriented: Person, Place Eyes: Normal Ear: Normal Nose: Normal Throat: Normal Respiratory: Left (left lower lobe), Rhonchi Cardiovascular: Normal : Normal Auscultation: Bowel Sounds: Normal Tenderness: RUQ, Epigastric, Mild Skin: Normal Musculoskeletal: Normal Psychiatric: Normal Mood Description: Calm Affect: Flat Speech Pattern: Clear, Appropriate - Laboratory and Diagnostics Result Diagrams: 01/13/17 05:30 01/13/17 05:30 Labs: Laboratory WBC 4.3 X10^3/uL (3.6-10.0) 01/13/17 05:30 RBC 3.24 X10^6/uL (4.7-6.0) L 01/13/17 05:30 Hgb 9.2 g/dL (13.5-18.0) L 01/13/17 05:30 Hct 28.4 % (42.0-54.0) L 01/13/17 05:30 MCV 87.7 fL (80.0-100.0) 01/13/17 05:30 MCH 28.5 pg (27.0-34.0) 01/13/17 05:30 MCHC 32.5 g/dL (33.0-35.0) L 01/13/17 05:30 RDW 14.4 % (11.6-16.5) 01/13/17 05:30 Plt Count 149 X10^3/uL (150.0-450.0) L 01/13/17 05:30 Plt Count Comment Adequate (ADEQUATE) 01/12/17 12:17 MPV 10.0 fL (7.4-11.0) 01/13/17 05:30 Neut % 64.5 % (42.0-75.0) 01/13/17 05:30 Lymph % 18.8 % (21.0-51.0) L 01/13/17 05:30 [place] % 11.4 % (0.0-13.0) 01/13/17 05:30 Eos % 4.3 % (0.9-2.9) H 01/13/17 05:30 Baso % 1.0 % (0.2-1.0) 01/13/17 05:30 Neut # 2.8 x10^3/uL (2.2-4.8) 01/13/17 05:30 Lymph # 0.8 X10^3/uL (1.3-2.9) L 01/13/17 05:30 [place] # 0.5 x10^3/uL (0.3-0.8) 01/13/17 05:30 Eos # 0.2 x10^3/uL (0.0-0.2) 01/13/17 05:30 Baso # 0.0 X10^3/uL (0.0-0.1) 01/13/17 05:30 Absolute Nucleated RBC 0.2 /100WBC 01/13/17 05:30 Total Counted 100 01/12/17 12:17 Neutrophils % (Manual) 62 % (39-76) 01/12/17 12:17 Lymphocytes % (Manual) 22 % (13-43) 01/12/17 12:17 Monocytes % (Manual) 14 % (4-9) H 01/12/17 12:17 Eosinophils % (Manual) 2 % (0-6) 01/12/17 12:17 Plt Morphology Comment Normal (NORMAL) 01/12/17 12:17 RBC Morphology Normal (NORMAL) 01/12/17 12:17 Sodium 143 mmol/L (136-145) 01/13/17 05:30 Corrected Sodium TNP 01/13/17 05:30 Potassium 4.8 mmol/L (3.5-5.1) 01/13/17 05:30 Chloride 112 mmol/L (98-107) H 01/13/17 05:30 Carbon Dioxide 18.8 mmol/L (21-32) L 01/13/17 05:30 BUN 50 mg/dL (7-18) H 01/13/17 05:30 Creatinine 3.81 mg/dL (0.70-1.30) H 01/13/17 05:30 Est GFR (MDRD) Af Amer 20 (>60) L 01/13/17 05:30 Est GFR (MDRD) Non-Af 17 (>60) L 01/13/17 05:30 Glucose 82 mg/dL (65-99) 01/13/17 05:30 Calcium 8.5 mg/dL (8.5-10.1) 01/13/17 05:30 Corrected Calcium 9.7 mg/dL (8.5-10.1) 01/13/17 05:30 Total Bilirubin 0.20 mg/dL (0.2-1.0) 01/13/17 05:30 AST 25 Units/L (15-37) 01/13/17 05:30 ALT 19 Units/L (12-78) 01/13/17 05:30 Alkaline Phosphatase 32 Units/L (46-116) L 01/13/17 05:30 Total Protein 6.2 g/dL (6.4-8.2) L 01/13/17 05:30 Albumin 2.5 g/dL (3.4-5.0) L 01/13/17 05:30 Globulin 3.7 g/dL (2.5-4.5) 01/13/17 05:30 Albumin/Globulin Ratio 0.7 Ratio (1.1-2.1) L 01/13/17 05:30 Amylase 30 Units/L (25-115) 01/12/17 12:17 Lipase 144 Units/L (73-393) 01/12/17 12:17 Specimen Type Clean catch urine 01/11/17 17:23 Urine Color Yellow (YELLOW) 01/11/17 17:23 Urine Appearance Hazy (CLEAR) 01/11/17 17:23 Urine pH 5.0 (5.0 - 8.0) 01/11/17 17:23 Ur Specific [place] 1.020 (1.000-1.030) 01/11/17 17:23 Urine Protein 3+ (NEGATIVE) 01/11/17 17:23 Urine Glucose (UA) Negative (NEGATIVE) 01/11/17 17:23 Urine Ketones Negative (NEGATIVE) 01/11/17 17:23 Urine Occult Blood 2+ (NEGATIVE) 01/11/17 17:23 Urine Nitrite Negative (NEGATIVE) 01/11/17 17:23 Urine Bilirubin Negative (NEGATIVE) 01/11/17 17:23 Urine Urobilinogen Normal (NORMAL) 01/11/17 17:23 Ur Leukocyte Esterase 3+ (NEGATIVE) 01/11/17 17:23 Urine RBC 0-5 /HPF (NEGATIVE) 01/11/17 17:23 Urine WBC 20-25 /HPF (NEGATIVE) 01/11/17 17:23 Ur Squamous Epith Cells Rare /HPF (NEGATIVE) 01/11/17 17:23 Urine Bacteria Trace /HPF (NEGATIVE) 01/11/17 17:23 Ur Culture Indicated? Yes/culture set up 01/11/17 17:23 - Plan (1) Left lower lobe pneumonia Status: Acute Qualifiers: Pneumonia type: P Aspiration pneumonia type: A Plan: continue resp therapy, IV atbx. repeat am labs and CXR (2) Acute on chronic renal failure Status: Acute Plan: 1. Cont to monitor in IMCU. 2. Telemetry. 3. O2 2 L/m per nasal cannula. 4. Chest x-ray. 5. UA C&S - pending. 6. Blood cultures 2 from separate sites - pending. 7. CMP and CBC. 8. agressive iv hydration (3) Abdominal pain Status: Acute Qualifiers: Abdominal location: A Plan: hida scan for this am, continue protonix iv (4) UTI (urinary tract infection) Status: Acute Qualifiers: Urinary tract infection type: U Hematuria presence: H Indwelling urinary catheter type: I Encounter type: E (5) HTN (hypertension) Status: Chronic Qualifiers: Hypertension type: H (6) Hyperlipidemia Status: Chronic Qualifiers: Hyperlipidemia type: H
--- NOTE | 2017-01-13 10:51 | RAD ---
HISTORY: CHF, shortness of breath Study: Single-view chest Comparison: Chest x-ray done January 18, 2015, CT scan of the chest done January 10, 2017. Findings: Cardiac monitoring leads are noted on the chest. The trachea is midline. There is cardiomegaly with aortic uncoiling. Lungs and pleural spaces are clear. Osseous structures are intact. There is an old healed fracture of the left mid clavicle. IMPRESSION: Hypertensive configuration without acute cardiopulmonary disease. No evidence of infiltrate, CHF or pleural fluid is seen. Reported By:
[2017-01-13] MEDS: SOLU-MEDROL 40 MG VIAL IVP SCH ×3 (11:00→21:27)
[2017-01-13] MEDS ORDERED: PERCOCET TAB 5/325 MG PO PRN (14:27)
[2017-01-13] MEDS: ATARAX TAB 25 MG PO SCH (21:26)
[2017-01-13] MEDS: TRICOR TAB 145 MG PO SCH (21:26)
[2017-01-14] MEDS: DUONEB 0.5 MG/3 MG NEB SCH ×3 (01:00→08:24)
[2017-01-14] MEDS: NEURONTIN CAP 400 MG PO SCH ×2 (05:12→13:18)
[2017-01-14] MEDS: NS 1000 ML 1,000 ML IV SCH ×2 (05:16→08:13)
[2017-01-14 06:18] LABS: BASOPHILS % (AUTO) 0.3 % (0.2-1.0); EOSINOPHILS % (AUTO) 0.1 % (0.9-2.9); HEMATOCRIT 27.6 % (42.0-54.0); HEMOGLOBIN 9.1 g/dL (13.5-18.0); LYMPHOCYTES # (AUTO) 0.4 X10^3/uL (1.3-2.9); LYMPHOCYTES % (AUTO) 10.8 % (21.0-51.0); MEAN CORPUSCULAR HEMOGLOBIN 28.6 pg (27.0-34.0); MEAN CORPUSCULAR HGB CONC 32.9 g/dL (33.0-35.0); MEAN CORPUSCULAR VOLUME 86.8 fL (80.0-100.0); MEAN PLATELET VOLUME 9.7 fL (7.4-11.0); MONOCYTES # (AUTO) 0.1 x10^3/uL (0.3-0.8); MONOCYTES % (AUTO) 2.6 % (0.0-13.0); NEUTROPHILS # (AUTO) 3.4 x10^3/uL (2.2-4.8); NEUTROPHILS % (AUTO) 86.2 % (42.0-75.0); PLATELET COUNT 173 X10^3/uL (150.0-450.0); RED BLOOD COUNT 3.19 X10^6/uL (4.7-6.0); RED CELL DISTRIBUTION WIDTH 14.2 % (11.6-16.5); WHITE BLOOD COUNT 3.9 X10^3/uL (3.6-10.0)
[2017-01-14 06:21] LABS: ALBUMIN 2.6 g/dL (3.4-5.0); CALCIUM 8.7 mg/dL (8.5-10.1); CARBON DIOXIDE 18.1 mmol/L (21-32); COR CA(FOR HYPOALB) 9.8 mg/dL (8.5-10.1); CREATININE 3.63 mg/dL (0.70-1.30); TOTAL PROTEIN 6.2 g/dL (6.4-8.2)
[2017-01-14 06:57] LABS: BAND NEUTROPHILS % 3 % (0-10); PLATELET MORPHOLOGY COMMENT NORMAL (NORMAL)
--- NOTE | 2017-01-14 06:57 | RAD ---
HISTORY: CHF, COPD, shortness of breath Study: Single-view chest, done portably. Comparison: January 13, 2017 Findings: Cardiac monitoring electrodes are noted on the chest. The trachea is midline. There is cardiomegaly with aortic uncoiling. Lungs and pleural spaces are clear . The osseous structures are intact. IMPRESSION: Hypertensive configuration without acute cardiopulmonary disease. Reported By:
[2017-01-14] MEDS: ROCEPHIN VIAL 1 GM 1 GM in NS 50 ML IV + SPIKE MINIBAG* 50 ML IV SCH (08:10)
[2017-01-14] MEDS: PROTONIX INJ 40 MG VIAL IVP SCH (08:11)
[2017-01-14] MEDS: ROBITUSSIN DM PO SCH ×2 (08:12→13:18)
[2017-01-14] MEDS: ZYLOPRIM PO SCH (08:12)
[2017-01-14] MEDS: PRILOSEC PO SCH (08:12)
[2017-01-14] MEDS: NORVASC TAB 5 MG PO SCH (08:12)
[2017-01-14] MEDS: FLONASE NASAL SPRAY ENOSTRIL SCH (08:14)
[2017-01-14] MEDS: NYSTATIN OINT TOP SCH (08:15)
[2017-01-14] MEDS: [UNRECOGNIZED DRUG - OTHER] PO SCH (08:15)
[2017-01-14] MEDS: SODIUM BICARBONATE TAB 650MG PO SCH (08:21)
[2017-01-14] MEDS: WELLBUTRIN XL 300 MG (DAILY) PO SCH (08:21)
[2017-01-14] MEDS: LEVAQUIN PREMIX IV 750 MG 750 MG/150 ML BAG IV SCH (08:43)
[2017-01-14 13:14] VITALS: BP 132/56
== END 2017-01-14 14:00 | disposition home or self-care (01) | DRG 884 ==
LOC: ER 14:44 → ICU 18:26 → ER 18:57 → OBSVTOIN 01-12 12:00
PROVIDERS: ADMIT Internal Medicine; ATTEND Internal Medicine
DX: R40.4 Transient alteration of awareness (principal); J18.1 Lobar pneumonia, unspecified organism; N18.4 Chronic kidney disease, stage 4 (severe); N17.8 Other acute kidney failure; E87.5 Hyperkalemia; R51 Headache; R10.84 Generalized abdominal pain; N39.0 Urinary tract infection, site not specified; I12.9 Hypertensive chronic kidney disease with stage 1 through stage 4 chronic kidney disease, or unspecified chronic kidney disease; N32.89 Other specified disorders of bladder; G25.3 Myoclonus; E78.2 Mixed hyperlipidemia; R26.89 Other abnormalities of gait and mobility; D64.89 Other specified anemias
CPT/HCPCS: 36415; 70450; 71010; 71250; 74176; 78227; 80048; 80053; 81001; 82150; 83690; 85025; 87040; 87086; 87205; 90686; 94640; 96365; 96367; 96374; 99284; A4222; C9113; 90670; G0378; J0696; J1956; J2175; J2405; J2920; J7620